=== PATIENT | female | born 1990 | race Caucasian/White ===

== ENCOUNTER → 2021-09-19 | Outpatient (CLI) | payer OTHER ==
--- NOTE | 2021-09-19 14:20 | MR ---
EXAMINATION TYPE: MR brain wo/w con DATE OF EXAM: 09/19/2021 COMPARISON: NONE HISTORY: 31-year-old female new onset seizure, R56.9. TECHNIQUE: Multiplanar, multisequence images of the brain and brainstem were acquired before and aft er administration of 5ml mL IV Gadavist. Diffusion weighted imaging is performed. FINDINGS: No evidence for acute infarction, hemorrhage, mass, mass effect, midline shift, herniation, effacemen t of basal cisterns, or extra-axial fluid collection. The ventricles and sulci are age-appropriate. Major intracranial flow voids are intact. T2/FLAIR weighted sequences show solitary [address] white matter focus in the left frontal periventr icular region, axial image 14. Questionable clinical significance. Midline structures demonstrate normal morphology. The craniocervical junction is normal. No evidence for tillman matter heterotopia. No volume loss of the hippocampi or fornices. Post contrast images demonstrate no evidence of pathologic enhancement. Dural venous sinuses are pat ent. Mild bilateral palatine tonsillar hypertrophy. Slight rightward nasal septal deviation. Trace mucosal thickening floor of the right maxillary sinus. Globes are intact. IMPRESSION: No intracranial abnormality or enhancing intracranial lesions seen.
== END | disposition home or self-care (01) ==
LOC: RADMRIMAIN 10:59
PROVIDERS: ATTEND Family Medicine
DX: R56.9 Unspecified convulsions (principal)
CPT/HCPCS: 70553; A9585

== ENCOUNTER 2022-04-15 11:15 | Outpatient (CLI) | payer OTHER ==
[2022-04-15 11:57] LABS: Appearance,Urine Cloudy (Clear); Bilirubin,Urine Negative (Negative); Blood,Urine Negative (Negative); Color,Urine Yellow; Glucose,Urine (UA) Negative (Negative); Ketones,Urine Negative (Negative); Leukocyte Esterase,Urine Small (Negative); Mucus,Urine Few /hpf; Nitrite,Urine Negative (Negative); Protein,Urine Trace (Negative); RBC,Urine <1 /hpf (0-5); Specific Gravity,Urine 1.023 (1.001-1.035); Squamous Epithelial Cell,Urine 6 /hpf (0-4); WBC,Urine 2 /hpf (0-5)
[2022-04-15 12:43] LABS: Basophils % (A) 0 %; Eosinophils % (A) 0 %; HCT 34.8 % (34.0-46.0); HGB 11.9 gm/dL (11.4-16.0); Lymphocytes # (A) 0.9 k/uL (1.0-4.8); Lymphocytes % (A) 10 %; MCH 33.3 pg (25.0-35.0); MCHC 34.3 g/dL (31.0-37.0); MCV 97.1 fL (80.0-100.0); Mean Platelet Volume 7.2; Monocytes # (A) 0.3 k/uL (0-1.0); Monocytes % (A) 4 %; Neutrophils # (A) 7.8 k/uL (1.3-7.7); Neutrophils % (A) 86 %; Platelet Count 209 k/uL (150-450); RBC 3.58 m/uL (3.80-5.40); RDW 12.3 % (11.5-15.5); WBC 9.1 k/uL (3.8-10.6)
--- NOTE | 2022-04-15 14:08 | US ---
EXAMINATION TYPE: US OB >= 14 wk fetus DATE OF EXAM: 04/15/2022 COMPARISON: None CLINICAL HISTORY: heart rate decelerations down to 70's, heart rate decelerations down to 70's. . TECHNIQUE: Transabdominal (TA) GESTATIONAL AGE / DATING Physician Established: (24 weeks/1 day) EDC: 08/04/2022 Dates by LMP: (24 weeks/1 day) EDC: 08/04/2022 Dates by First Scan: This is first scan at this facility Dates by Current Scan: (23 weeks/2 days) EDC: 08/10/2022 SURVEY IUP: Single PLACENTA: Posterior. PREVIA: Difficult to visualize inferior placental margin due to undistended maternal bladder. Inferio r placental margin appears to be 2.5 cm from internal os, although limited visibility. No additional transvaginal imaging to be done at this time per RN. OSCAR: 14.71 cm Normal CERVICAL LENGTH (transabdominal: norm > 3.0cm): 3.9 cm *Transvaginal not performed per RN Lea. BIOMETRY PRESENTATION: Vertex suboptimal evaluation BPD: 5.75 cm 23 weeks / 4 days HC: 21.54 cm 23 weeks / 4 days AC: 19.24 cm 24 weeks / 0 days FL: 4.14 cm 23 weeks / 3 days ESTIMATED WEIGHT IN GRAMS: 621.19 grams ESTIMATED WEIGHT IN LBS/OZ: 1 lbs. 6 oz. WEIGHT PERCENTAGE BASED ON ESTABLISHED DATES: 23.0% HC/AC: 1.12 Normal FL/AC: 21.50 Normal HEART RATE: 133 bpm, 138 bpm second measurement RHYTHM: Normal Limited head measurements due to position. IMPRESSION: Single live intrauterine with ultrasound age 23 weeks 2 days details as described above.
[2022-04-15 14:43] VITALS: BP 113/61; PULSE 87; RESP 20; TEMP 98.1
--- NOTE | 2022-05-01 08:10 | P.MSEPDOC ---
Presenting Problems - Arrival Data Date of Arrival on Unit: 04/15/22 Time of Arrival on Unit: 11:15 Mode of Transport: Wheelchair - Complaint OB-Reason for Admission/Chief Complaint: Pain Comment: Pt presents to triage for constant lower abd pain, rating pain 8/10, vomiting 4 times this am at 0630 Medical History - Information : 3 Para: 2 Term: 2 : 0 Abortions: Spontaneous or Elective: 0 Number of Living Children: 2 - Gestational Age Gestational Age by MONSTER (wks/days): 24 Weeks and 1 Days - History Complications: Hx. 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, stoped opioids for 1 yr, and thc last month Review of Systems - Review of Systems Constitutional: No problems Breast: No problems ENT: No problems Cardiovascular: No problems Respiratory: No problems Gastrointestinal: No problems Genitourinary: No problems Musculoskeletal: No problems Neurological: No problems Skin: No problems Vital Signs - Temperature Temperature: 98.1 F Temperature Source: Temporal Artery Scan - Pulse Right Brachial Pulse Rate: 87 Pulse Assessment Method: Automatic Cuff - Respirations Respiratory Rate: 20 Oxygen Delivery Method: Room Air O2 Sat by Pulse Oximetry: 99 - Blood Pressure Right Arm Blood Pressure: 113/61 Blood Pressure Mean: 78 Blood Pressure Source: Automatic Cuff Medical Screen Scoring - Cervical Exam Dilation (cm): 0 - Uterine Contractions Frequency From (mins): 0 - Assessment - Baby A Baseline FHR: 135 Heart Rate - NICHD Category: Category I (Normal) Physician Notification - Physician Notified Physician Notified Date: 04/15/22 Physician Notified Time: 11:30 Physician: Joelle Lyman New Order Received: Yes - Notification Comment Comment: UA and cbc sent, Ultrasound performed, cervical exam closed/thick/high, discharged home with instructions to follow up with her OB in [place] at her next scheduled appt on Apr 27 Maternal Triage Index - Maternal Triage Index Presenting for scheduled procedure w/no complaint: No - Stat/Priority 1 Stat Priority 1: No - Urgent/Priority 2 Urgent Priority 2: Yes Provider Notified: Joelle Lyman Provider Notified Time: 11:30 Criteria Met for Priority 2: Pt presents to triage for constant lower abd pain, rating pain 8/10, vomiting 4 times this am at 0630 - Prompt/Priority 3 Prompt Priority 3: No - Non-Urgent/Priority 4 Non-Urgent Priority 4: No - Scheduled/Requesting Priority 5 Scheduled/Requesting Priority 5: No Disposition - Disposition OB Disposition: Triage, Discharge to home, Written follow up instructions reviewed Discharge Date: 04/15/22 Discharge Time: 14:25 I agree with the RN Medical Screening Exam: Yes Physician's MSE Comment: Episode of heart tones reported to me as down to the 70 bpm on Motrin one occasion and an otherwise reactive tracing with good variability. Ultrasound was ordered which showed normal amniotic fluid volume and on measurements for stated gestational age. No placenta previa. Please see ultrasound report. On the remainder of the observation period in triage there were no further decelerations noted and good variability was present. Category 1 heart tones for gestational age prior to discharge. Case reviewed; plan agreed upon as documented in EMR&OBIX.: Yes Diagnosis: vomitting in
== END 2022-04-15 14:25 | disposition home or self-care (01) ==
LOC: FBPOP 11:15
PROVIDERS: ATTEND Obstetrics & Gynecology
DX: O21.2 Late vomiting of pregnancy (principal); Z3A.24 24 weeks gestation of pregnancy
CPT/HCPCS: 36415; 76805; 81001; 85025; 99213

== ENCOUNTER 2022-06-16 19:48 | Outpatient (CLI) | payer OTHER ==
[2022-06-16] MEDS ORDERED: LACTATED RINGERS 1,000 ML IV ONE (20:45)
[2022-06-16 21:08] LABS: Basophils % (A) 0 %; Eosinophils # (A) 0.1 k/uL (0-0.7); Eosinophils % (A) 1 %; HCT 31.1 % (34.0-46.0); HGB 11.5 gm/dL (11.4-16.0); Lymphocytes # (A) 1.3 k/uL (1.0-4.8); Lymphocytes % (A) 20 %; MCH 34.8 pg (25.0-35.0); Mean Platelet Volume 8.9; Monocytes # (A) 0.3 k/uL (0-1.0); Monocytes % (A) 5 %; Neutrophils # (A) 4.9 k/uL (1.3-7.7); Neutrophils % (A) 74 %; Platelet Count 157 k/uL (150-450); RBC 3.31 m/uL (3.80-5.40); RDW 12.5 % (11.5-15.5); WBC 6.6 k/uL (3.8-10.6)
[2022-06-16 21:19] LABS: INR 0.9 (<1.2); Partial Thromboplastin Time 24.7 sec (22.0-30.0); Prothrombin Time 9.8 sec (9.0-12.0)
== END 2022-06-17 00:15 | disposition home or self-care (01) ==
LOC: FBPOP 19:48
PROVIDERS: ATTEND Obstetrics & Gynecology Obstetrics
DX: O9A.213 Injury, poisoning and certain other consequences of external causes complicating pregnancy, third trimester (principal); Z3A.33 33 weeks gestation of pregnancy
CPT/HCPCS: 85025; 85384; 85610; 85730

== ENCOUNTER 2022-07-27 00:26 | Inpatient (IN) | payer OTHER ==
[2022-07-27] MEDS ORDERED: LIDOCAINE 0.5% (PF) 5 MG/ML (50 ML SDV) SQ PRN (00:55)
[2022-07-27] MEDS ORDERED: TERBUTALINE 1 MG/ML VIAL SQ PRN (00:55)
[2022-07-27] MEDS ORDERED: LACTATED RINGERS 1,000 ML IV SCH ×2 (01:00)
[2022-07-27] MEDS ORDERED: OXYTOCIN 30 UNITS/500 ML NS 30 UNIT in SALINE 1 500ML.BAG IV SCH (01:00)
[2022-07-27 01:25] LABS: Amphetamine Screen,Urine Not Detected (NotDetected); Barbiturate Screen,Urine Not Detected (NotDetected); Benzodiazepines Screen,Urine Not Detected (NotDetected); Cocaine Screen,Urine Not Detected (NotDetected); Methadone Screen, Urine Not Detected (NotDetected); Opiate Screen,Urine Not Detected (NotDetected); Oxycodone Screen, Urine Not Detected (NotDetected); Phencyclidine Screen,Urine Not Detected (NotDetected); Tricyclic Antidepressant,Urine Not Detected (NotDetected); Urn Cannabinoid Scrn Detected (NotDetected)
[2022-07-27 01:30] LABS: Basophils % (A) 0 %; Eosinophils # (A) 0.1 k/uL (0-0.7); Eosinophils % (A) 1 %; HCT 34.1 % (34.0-46.0); HGB 12.4 gm/dL (11.4-16.0); Lymphocytes % (A) 23 %; MCH 34.1 pg (25.0-35.0); MCHC 36.3 g/dL (31.0-37.0); MCV 93.8 fL (80.0-100.0); Mean Platelet Volume 8.7; Monocytes # (A) 0.4 k/uL (0-1.0); Monocytes % (A) 4 %; Neutrophils # (A) 6.3 k/uL (1.3-7.7); Neutrophils % (A) 71 %; Platelet Count 155 k/uL (150-450); RBC 3.63 m/uL (3.80-5.40); RDW 12.8 % (11.5-15.5); WBC 8.8 k/uL (3.8-10.6)
--- NOTE | 2022-07-27 03:38 | P.HPOB ---
History of Present Illness H&P Date: 07/27/22 Chief Complaint: SROM 32-year-old presents at 39 weeks complaining of spontaneous rupture of membranes at 12:08 AM. Her cervix is 4 cm dilated, 80% effaced, -2 station. She is fredi every few minutes. heart tones are 135 with moderate variability and reactive. Patient has been getting care, but still. She is currently on a Suboxone regimen. Review of Systems All systems: negative Constitutional: Denies chills, Denies fever Eyes: denies blurred vision, denies pain Ears, nose, mouth and throat: Denies headache, Denies sore throat Cardiovascular: Denies chest pain, Denies shortness of breath Respiratory: Denies cough Gastrointestinal: Denies abdominal pain, Denies diarrhea, Denies nausea, Denies vomiting Genitourinary: Denies dysuria, Denies hematuria Musculoskeletal: Denies myalgias Integumentary: Denies pruritus, Denies rash Neurological: Denies numbness, Denies weakness Psychiatric: Denies anxiety, Denies depression Endocrine: Denies fatigue, Denies weight change Past Medical History Past Medical History: No Reported History History of Any Multi-Drug Resistant Organisms: None Reported Additional Past Surgical History / Comment(s): 4 on right ankle Past Anesthesia/Blood Transfusion Reactions: No Reported Reaction Past Psychological History: Anxiety, Bipolar, Depression Smoking Status: Former smoker Past Drug Use History: Marijuana, Opiates Additional Drug Use History / Comment(s): THC use throughout preg, pt. on subutex for a yr and half due to opiates Medications and Allergies Home Medications Medication Instructions Recorded Confirmed Type buprenorphine HCL [Subutex] 2 mg SUBLINGUAL BID 06/16/22 07/27/22 History Acyclovir 800 mg PO BID 07/27/22 07/27/22 History Vit No.179/Iron/Folic 1 tab PO DAILY 07/27/22 07/27/22 History [ Tablet] Allergies Allergy/AdvReac Type Severity Reaction Status Date / Time No Known Allergies Allergy Verified 04/15/22 11:36 Exam Osteopathic Statement: *. No significant issues noted on an osteopathic structural exam other than those noted in the History and Physical/Consult. Vital Signs Temp Pulse Resp BP Pulse Ox 07/27/22 03:30 97.5 F L 100 16 131/75 98 07/27/22 00:51 97.5 F L 100 16 141/80 98 Intake and Output 07/26/22 07/26/22 07/27/22 14:59 22:59 06:59 Output Total 400 Balance -400 Output: Urine 400 Other: Weight 58.06 kg Heart: Regular rate and rhythm Lungs: Clear to auscultation bilaterally Abdomen: Soft, nontender Extremities: Negative Homans sign Results Result Diagrams: 07/27/22 01:00 Abnormal Lab Results - Last 24 Hours (Table) 07/27/22 07/27/22 Range/Units 00:42 01:00 RBC 3.63 L (3.80-5.40) m/uL U Marijuana (THC) Screen Detected H (NotDetected) Assessment and Plan (1) 39 weeks gestation of Current Visit: Yes Status: Acute Code(s): Z3A.39 - 39 WEEKS GESTATION OF SNOMED Code(s): 61900488 (2) Spontaneous rupture of membranes Current Visit: Yes Status: Acute Code(s): WDN3727 - SNOMED Code(s): 381059455 (3) complicated by subutex maintenance, antepartum Current Visit: Yes Status: Acute Code(s): O99.320 - DRUG USE COMPLICATING , UNSPECIFIED TRIMESTER; F11.20 - OPIOID DEPENDENCE, UNCOMPLICATED SNOMED Code(s): 90412271 Plan: 1. Admit to family place 2. Expectant management 3. Anticipate normal vaginal delivery 4. Discussion was had with the patient and father of the baby that the baby has been exposed to Subutex during the the baby will have to be taken to the nursery for [employer] scoring and probable treatment for withdrawal.
[2022-07-27] MEDS ORDERED: HYDROCORTISONE 2.5% RECTAL CREAM 30 GM TUBE RECTAL PRN (06:59)
[2022-07-27] MEDS ORDERED: BENZOCAINE/MENTHOL SPRAY 1 GM/SPRAY AEROSOL TOPICAL PRN (06:59)
[2022-07-27] MEDS ORDERED: SIMETHICONE 80 MG CHEWABLE PO PRN (06:59)
[2022-07-27] MEDS ORDERED: diphenhydrAMINE 50 MG/ML 1 ML VIAL IVP PRN ×2 (06:59)
[2022-07-27] MEDS ORDERED: LANOLIN CREAM 5 GM TUBE TOPICAL PRN (06:59)
[2022-07-27] MEDS ORDERED: ZOLPIDEM 5 MG TAB PO PRN (06:59)
[2022-07-27] MEDS ORDERED: diphenhydrAMINE 50 MG CAP PO PRN (06:59)
[2022-07-27] MEDS ORDERED: diphenhydrAMINE 25 MG CAP PO PRN (06:59)
[2022-07-27] MEDS: SENNOSIDES-DOCUSATE SODIUM 1 EACH TAB PO SCH ×2 (07:38→19:59)
[2022-07-27] MEDS: IBUPROFEN 600 MG TAB PO PRN ×3 (07:38→19:58)
--- NOTE | 2022-07-27 11:38 | P.PROBDLV ---
Vaginal Delivery Note - . Vaginal Delivery Note: 32-year-old presents at 39 weeks complaining of spontaneous rupture of membranes at 12:08 AM. Her cervix is 4 cm dilated, 80% effaced, -2 station. She is fredi every few minutes. heart tones are 135 with moderate variability and reactive. Patient is admitted to [facility], an epidural for pain management. She progressed throughout the night and was completely dilated at 6:06 AM. She pushed, and delivered a male infant over intact perineum under epidural anesthesia at 6:30 AM. Head delivered OA, nuchal cord 1 easily reduced, anterior shoulder delivered gentle downward guidance for by posterior shoulder and rest of body. Nose and mouth bulb suctioned, cord clamped and cut, infant placed mother's abdomen. Apgars 8, 9, weight 6 pounds 6.5 ounces. Placenta delivered spontaneously, intact with three-vessel cord at 6:32 AM. Vagina, cervix, perineum inspected. No lacerations noted. Estimated blood loss 200 mL. Mother and baby in stable condition.
[2022-07-27] MEDS: ACETAMINOPHEN TAB 325 MG TAB PO PRN (17:10)
[2022-07-28] MEDS: SENNOSIDES-DOCUSATE SODIUM 1 EACH TAB PO SCH ×2 (07:27→19:38)
[2022-07-28] MEDS: IBUPROFEN 600 MG TAB PO PRN ×3 (07:27→19:38)
[2022-07-28 07:39] LABS: Basophils % (A) 0 %; Eosinophils # (A) 0.1 k/uL (0-0.7); Eosinophils % (A) 1 %; HCT 32.4 % (34.0-46.0); HGB 11.5 gm/dL (11.4-16.0); Lymphocytes # (A) 2.2 k/uL (1.0-4.8); Lymphocytes % (A) 30 %; MCH 33.7 pg (25.0-35.0); MCHC 35.5 g/dL (31.0-37.0); MCV 94.9 fL (80.0-100.0); Monocytes # (A) 0.4 k/uL (0-1.0); Monocytes % (A) 5 %; Neutrophils # (A) 4.6 k/uL (1.3-7.7); Neutrophils % (A) 62 %; Platelet Count 151 k/uL (150-450); RBC 3.42 m/uL (3.80-5.40); RDW 12.7 % (11.5-15.5); WBC 7.3 k/uL (3.8-10.6)
--- NOTE | 2022-07-28 12:04 | P.PNOBGVD ---
Subjective - Subjective Principal diagnosis: S/P NVD PPD #1 Interval history: PT seen and examined. Denies N/V, F/C, CP, SOB or calf pain. Patient reports: Reports appetite normal, Reports voiding normally, Reports pain well controlled, Reports ambulating normally [place]: doing well Objective - Latest Vital Signs Latest vital signs: Vital Signs Temp Pulse Resp BP 07/28/22 07:30 97.8 F 67 18 115/75 07/27/22 23:41 98.1 F 85 16 114/74 07/27/22 16:00 97.8 F 78 17 115/67 Intake and Output 07/27/22 07/28/22 07/28/22 22:59 06:59 14:59 Other: # Voids 1 1 1 # Bowel Movements 1 - Exam Lungs: bilateral: normal Chest: Normal S1, Normal S2 Extremities: Present: normal Abdomen: Present: normal appearance, soft Uterus: Present: normal, firm - Labs Labs: Abnormal Lab Results - Last 24 Hours (Table) 07/28/22 Range/Units 06:27 RBC 3.42 L (3.80-5.40) m/uL Hct 32.4 L (34.0-46.0) % Assessment and Plan (1) 39 weeks gestation of Current Visit: Yes Status: Resolved Code(s): Z3A.39 - 39 WEEKS GESTATION OF SNOMED Code(s): 58192458 (2) Spontaneous rupture of membranes Current Visit: Yes Status: Resolved Code(s): RKC4536 - SNOMED Code(s): 971759646 (3) complicated by subutex maintenance, antepartum Current Visit: Yes Status: Resolved Code(s): O99.320 - DRUG USE COMPLICATING , UNSPECIFIED TRIMESTER; F11.20 - OPIOID DEPENDENCE, UNCOMPLICATED SNOMED Code(s): 63125309 (4) Normal vaginal delivery Current Visit: Yes Status: Acute Code(s): O80 - ENCOUNTER FOR FULL-TERM UNCOMPLICATED DELIVERY SNOMED Code(s): 65863260 Plan: 1. cont pp care
[2022-07-28] MEDS: ACETAMINOPHEN TAB 325 MG TAB PO PRN ×2 (16:15→23:37)
[2022-07-29] MEDS: IBUPROFEN 600 MG TAB PO PRN ×3 (05:08→17:37)
[2022-07-29] MEDS: ACETAMINOPHEN TAB 325 MG TAB PO PRN ×2 (07:40→14:25)
[2022-07-29] MEDS: SENNOSIDES-DOCUSATE SODIUM 1 EACH TAB PO SCH (07:41)
[2022-07-29 10:33] VITALS: RESP 20
[2022-07-29 14:39] VITALS: BP 125/83; PULSE 73; TEMP 98.1
== END 2022-07-29 18:00 | disposition home or self-care (01) | DRG 806 ==
LOC: FBPOP 00:26 → 4FBP 00:39
PROVIDERS: ADMIT Obstetrics & Gynecology; ATTEND Obstetrics & Gynecology
PROC: 10E0XZZ Delivery of Products of Conception, External Approach (ICD-10-PCS; principal; 2022-07-27)
DX: O99.324 Drug use complicating childbirth (principal); F11.20 Opioid dependence, uncomplicated; Z37.0 Single live birth; Z3A.39 39 weeks gestation of pregnancy; F12.90 Cannabis use, unspecified, uncomplicated; O99.344 Other mental disorders complicating childbirth; F41.9 Anxiety disorder, unspecified; F31.9 Bipolar disorder, unspecified; O69.81X0 Labor and delivery complicated by cord around neck, without compression, not applicable or unspecified; Z79.899 Other long term (current) drug therapy; Z87.891 Personal history of nicotine dependence
CPT/HCPCS: 80306; 84112; 85025; 86850; 86900; 86901; 99213

== ENCOUNTER → 2024-04-05 | Outpatient (CLI) | payer OTHER | END | disposition home or self-care (01) | LOC: LABWHC1 09:28 | DX: Z01.818 Encounter for other preprocedural examination | CPT/HCPCS: 86850; 86900; 86901 ==